=== PATIENT | female | born 1960 | race Caucasian/White ===

== ENCOUNTER 2017-07-28 10:09 | Emergency (ER) | payer MEDICARE ==
--- NOTE | 2017-07-28 10:38 | ER Document Report ---
ED Medical Screen (RME) - General Chief Complaint: Arm Pain Stated Complaint: BLOOD PRESSURE ISSUES Time Seen by Provider: 07/28/17 10:36 Notes: Patient states of severe right-sided neck pain that radiated down the right arm that caused some tingling in her right fingers. This started this morning. Patient states she now feels significantly better. TRAVEL OUTSIDE OF THE [place] IN LAST 30 DAYS: No - Related Data Allergies/Adverse Reactions: No Known Allergies Allergy (Verified 07/28/17 10:31) Home Medications: Current Home Medications Aspirin [Aspirin 81 mg Chewable Tablet] 2 tab PO DAILY 07/28/17 [History] Famotidine 1 tab PO QHS 07/28/17 [History] Past Medical History Renal/ Medical History: Denies: Hx Peritoneal Dialysis Physical Exam - Vital signs Vitals: Temp Pulse Resp BP Pulse Ox 98.2 F 97 16 152/92 H 98 07/28/17 10:15 07/28/17 10:15 07/28/17 10:15 07/28/17 10:15 07/28/17 10:15 Course - Vital Signs Vital signs: Temp Pulse Resp BP Pulse Ox 98.2 F 97 16 152/92 H 98 07/28/17 10:15 07/28/17 10:15 07/28/17 10:15 07/28/17 10:15 07/28/17 10:15
[2017-07-28 11:39] LABS: ABSOLUTE BASOPHILS # (AUTO) 0.1 10^3/uL (0.0-0.2); ABSOLUTE EOSINOPHILS # (AUTO) 0.1 10^3/uL (0.0-0.6); ABSOLUTE LYMPHOCYTES (AUTO) 3.7 10^3/uL (0.5-4.7); ABSOLUTE MONOCYTES (AUTO) 0.4 10^3/uL (0.1-1.4); ABSOLUTE NEUT (AUTO) 3.5 10^3/uL (1.7-8.2); BASOPHILS % (AUTO) 1.3 % (0-2); EOSINOPHILS % (AUTO) 1.1 % (0-6); HEMATOCRIT 44.6 % (36.0-47.0); HEMOGLOBIN 15.7 g/dL (12.0-15.5); HGB HCT DIFFERENCE 2.5; LYMPHOCYTES % (AUTO) 47.2 % (13-45); MEAN CORPUSCULAR HEMOGLOBIN 32.4 pg (27.0-33.4); MEAN CORPUSCULAR HGB CONC 35.2 g/dL (32.0-36.0); MEAN CORPUSCULAR VOLUME 92 fl (80-97); MONOCYTES % (AUTO) 5.1 % (3-13); RED BLOOD COUNT 4.83 10^6/uL (3.72-5.28); RED CELL DISTRIBUTION WIDTH 13.6 % (11.5-14.0); SEGMENTED NEUTROPHILS % (AUTO) 45.3 % (42-78); WHITE BLOOD COUNT 7.8 10^3/uL (4.0-10.5)
--- NOTE | 2017-07-28 12:00 | RADIOLOGY REPORT (SQ) ---
EXAM DESCRIPTION: CT HEAD WITHOUT COMPLETED DATE/TIME: 07/28/2017 11:51 am REASON FOR STUDY: arm paom and numbness COMPARISON: None. TECHNIQUE: Axial images acquired through the brain without intravenous contrast. Images reviewed wi th bone, brain and subdural windows. Images stored on PACS. All CT scanners at this facility use dose modulation, iterative reconstruction, and/or weight based d osing when appropriate to reduce radiation dose to as low as reasonably achievable (ALARA). [facility]: Dose Right [facility]: CareDose [facility]: Dose Right [facility]: Teradose 4D [facility]: Smart Enabled [employer] RADIATION DOSE: Up-to-date CT equipment and radiation dose reduction techniques were employed. CTDIv ol: 64.6 mGy. DLP: 1163 mGy-cm. mGy. LIMITATIONS: None. FINDINGS: VENTRICLES: Normal size and contour. CEREBRUM: No masses. No hemorrhage. No midline shift. No evidence for acute infarction. Normal gra y/white matter differentiation. No areas of low density in the white matter. CEREBELLUM: No masses. No hemorrhage. No alteration of density. No evidence for acute infarction. EXTRAAXIAL SPACES: No fluid collections. No masses. ORBITS AND GLOBE: No intra- or extraconal masses. Normal contour of globe without masses. CALVARIUM: No fracture. PARANASAL SINUSES: Mucosal thickening is seen of the left maxillary antrum. SOFT TISSUES: No mass or hematoma. OTHER: No other significant finding. IMPRESSION: No acute intracranial changes. No acute hemorrhage. EVIDENCE OF ACUTE STROKE: NO. COMMENT: Quality ID # [id number]: Final reports with documentation of one or more dose reduction techniques (e.g., Automated exposure control, adjustment of the mA and/or kV according to patient size, use of iterative reconstruction technique) TECHNICAL DOCUMENTATION: JOB ID: [id number]- All Rights Reserved
[2017-07-28 12:03] LABS: ALANINE AMINOTRANSFERASE 35 U/L (9-52); ALBUMIN 4.3 g/dL (3.5-5.0); ALKALINE PHOSPHATASE 81 U/L (38-126); ANION GAP 10 (5-19); ASPARTATE AMINO TRANSFERASE 22 U/L (14-36); BILIRUBIN,DIRECT 0.3 mg/dL (0.0-0.4); BILIRUBIN,TOTAL 0.4 mg/dL (0.2-1.3); BLOOD UREA NITROGEN 10 mg/dL (7-20); CALCIUM 9.7 mg/dL (8.4-10.2); CARBON DIOXIDE 30 mmol/L (22-30); CHLORIDE 103 mmol/L (98-107); CREATININE RESULT 0.64 mg/dL (0.52-1.25); GLUCOSE 91 mg/dL (75-110); POTASSIUM 4.7 mmol/L (3.6-5.0); SODIUM 142.8 mmol/L (137-145); TOTAL PROTEIN 6.9 g/dL (6.3-8.2)
[2017-07-28 12:31] VITALS: BP 135/94
[2017-07-28] MEDS ORDERED: DIAZEPAM INJ 10 MG/2 ML DISP.SYRIN IM ONE (12:49)
--- NOTE | 2017-07-28 12:51 | ER Document Report ---
ED General <BERNARDO JARRETT - Last Filed: 07/28/17 12:58> - General Mode of Arrival: Ambulatory Information source: Patient TRAVEL OUTSIDE OF THE [place] IN LAST 30 DAYS: No - HPI Onset: This morning Onset/Duration: Sudden Quality of pain: Sharp Severity: Mild Pain Level: 1 Associated symptoms: Body/muscle aches Exacerbated by: Movement Relieved by: Denies Similar symptoms previously: No Recently seen / treated by doctor: No <VAMSI JOHNSON - Last Filed: 07/28/17 15:56> - General Chief Complaint: Arm Pain Stated Complaint: BLOOD PRESSURE ISSUES Time Seen by Provider: 07/28/17 10:36 Notes: 56-year-old female history of hypertension presents with complaints of neck pain radiating from the posterior neck down the arm. Patient notes it is positional worsened with movement of the neck and lifting her arm up. Patient denies any actual chest pain denies any fevers or chills. Patient did have a heart catheterization 2 years ago and notes she was told that she has completely clean arteries and that her chest pain from the past was related to stress Patient notes she slept on the couch last night and thinks she slept wrong ( VAMSI JOHNSON) - Related Data Allergies/Adverse Reactions: No Known Allergies Allergy (Verified 07/28/17 10:31) Home Medications: Current Home Medications Albuterol Sulfate [Proair HFA Inhalation Aerosol 8.5 gm MDI] 2 puff IH BID 07/28 [History] Aspirin [Aspirin 81 mg Chewable Tablet] 2 tab PO DAILY 07/28/17 [History] Celecoxib 1 cap PO BID 07/28/17 [History] Esomeprazole Magnesium 1 cap PO DAILY 07/28/17 [History] Famotidine 1 tab PO QHS 07/28/17 [History] Fluticasone/Salmeterol [Advair 250-50 Diskus 28 dose] 1 inh IH Q12H 07/28/17 [ History] Lisinopril/Hydrochlorothiazide [Lisinopril-Hctz 10-12.5 mg Tab] 1 tab PO DAILY 07/28/17 [History] Metformin HCl 1 tab PO ACBRKFST 07/28/17 [History] Milnacipran HCl [Savella] 2 tab PO BID 07/28/17 [History] Past Medical History - Social History Smoking Status: Current Every Day Smoker Cigarette use (# per day): Yes Chew tobacco use (# tins/day): No Smoking Education Provided: No Frequency of alcohol use: None Drug Abuse: None Family History: Reviewed & Not Pertinent Patient has suicidal ideation: No Patient has homicidal ideation: No - Past Medical History Cardiac Medical History: Reports: Hx Hypertension Pulmonary Medical History: Reports: Hx COPD Renal/ Medical History: Denies: Hx Peritoneal Dialysis GI Medical History: Reports: Hx Gastroesophageal Reflux Disease Past Surgical History: Reports: Hx Appendectomy, Hx Cholecystectomy, Hx Hysterectomy, Hx Nose Surgery - 2 sinus, Hx Tonsillectomy - and adnoids, Hx Tubal Ligation <VAMSI JOHNSON - Last Filed: 07/28/17 15:56> Review of Systems <BERNARDO JARRETT - Last Filed: 07/28/17 12:58> <VAMSI JOHNSON - Last Filed: 07/28/17 15:56> - Review of Systems Notes: REVIEW OF SYSTEMS: CONSTITUTIONAL : Denies fever, chills, or sweats. Denies recent illness. EENT: Denies eye, ear, throat, or mouth pain or symptoms. Denies nasal or sinus congestion or discharge. Denies throat, tongue, or mouth swelling or difficulty swallowing. CARDIOVASCULAR: Denies chest pain. Denies palpitations or racing or irregular heart beat. Denies ankle edema. RESPIRATORY: Denies cough, cold, or chest congestion. Denies shortness of breath, difficulty breathing, or wheezing. GASTROINTESTINAL: Denies abdominal pain or distention. Denies nausea, vomiting , or diarrhea. Denies blood in vomitus, stools, or per rectum. Denies black, tarry stools. Denies constipation. GENITOURINARY: Denies difficulty urinating, painful urination, burning, frequency, blood in urine, or discharge. FEMALE GENITOURINARY: Denies vaginal bleeding, heavy or abnormal periods, irregular periods. Denies vaginal discharge or odor. MUSCULOSKELETAL: Denies back or neck pain or stiffness. Denies joint pain or swelling. SKIN: Denies rash, lesions or sores. HEMATOLOGIC : Denies easy bruising or bleeding. LYMPHATIC: Denies swollen, enlarged glands. NEUROLOGICAL: Admits throbbing pain from the neck down to the hand on the right PSYCHIATRIC: Denies anxiety or stress. Denies depression, suicidal ideation, or homicidal ideation. ALL OTHER SYSTEMS REVIEWED AND NEGATIVE. PHYSICAL EXAMINATION: GENERAL: Well-appearing, well-nourished and in no acute distress. HEAD: Atraumatic, normocephalic. EYES: Pupils equal round and reactive to light, extraocular movements intact, conjunctiva are normal. ENT: Nares patent, oropharynx clear without exudates. Moist mucous membranes. NECK: Normal range of motion, supple without lymphadenopathy LUNGS: Breath sounds clear to auscultation bilaterally and equal. No wheezes rales or rhonchi. HEART: Regular rate and rhythm without murmurs ABDOMEN: Soft, nontender, nondistended abdomen. No guarding, no rebound. No masses appreciated. Female : deferred Musculoskeletal: Normal range of motion, no pitting or edema. No cyanosis. Easily reproducible pain with movement of the arm and palpation of the neck NEUROLOGICAL: Cranial nerves grossly intact. Normal speech, normal gait. Normal sensory, motor exams PSYCH: Normal mood, normal affect. SKIN: Warm, Dry, normal turgor, no rashes or lesions noted. Dictation was performed using [employer] voice recognition software (VAMSI JOHNSON) - Vital signs Vitals: Temp Pulse Resp BP Pulse Ox 98.2 F 97 16 152/92 H 98 07/28/17 10:15 07/28/17 10:15 07/28/17 10:15 07/28/17 10:15 07/28/17 10:15 Course - Laboratory Result Diagrams: 07/28/17 11:10 07/28/17 11:10 <BERNARDO JARRETT - Last Filed: 07/28/17 12:58> - Laboratory Result Diagrams: 07/28/17 11:10 07/28/17 11:10 - Diagnostic Test Radiology reviewed: Image reviewed, Reports reviewed <VAMSI JOHNSON - Last Filed: 07/28/17 15:56> - Re-evaluation Re-evalutation: 07/28/17 15:48 Lab work noted no significant abnormality, given the patient's presentation is reproducible with movement of the arm I do believe this is more of a cervical impingement issue. She had a negative heart cath 2 years ago and therefore has very low risk for any cardiac event. Patient return precautions have been provided to the family and patient she will be treated with Valium for her pain pt has no cauda equina concerns After performing a Medical Screening Examination, I estimate there is LOW risk for RUPTURED ESOPHAGUS, PNEUMOTHORAX, PULMONARY EMBOLISM, ACUTE CORONARY SYNDROME, OR THORACIC AORTIC DISSECTION, thus I consider the discharge disposition reasonable. I have reevaluated this patient multiple times and no significant life threatening changes are noted. The patient and I have discussed the diagnosis and risks, and we agree with discharging home with close follow-up. We also discussed returning to the Emergency Department immediately if new or worsening symptoms occur. We have discussed the symptoms which are most concerning (e.g., bloody sputum, worsening pain or shortness of breath) that necessitate immediate return. (VAMSI JOHNSON) - Vital Signs Vital signs: Temp Pulse Resp BP Pulse Ox 97.8 F 85 18 135/94 H 98 07/28/17 12:29 07/28/17 12:29 07/28/17 12:29 07/28/17 12:29 07/28/17 12:29 - Laboratory Laboratory results interpreted by me: 07/28/17 11:10 Hgb 15.7 H Lymphocytes % 47.2 H Discharge <BERNARDO JARRETT - Last Filed: 07/28/17 12:58> <VAMSI JOHNSON - Last Filed: 07/28/17 15:56> - Discharge Clinical Impression: Cervical nerve root impingement Condition: Stable Disposition: HOME, SELF-CARE Instructions: Family Physicians / Practices, Neck Injury (Cervical Strain) ([facility] ) Additional Instructions: Follow up with your physician tomorrow for further care or return to the ED IMMEDIATELY if symptoms worsen or new concerns occur. If you cannot afford to follow up with your primary care physician a list of low cost clinics have been provided at the end of your discharge papers as well. Prescriptions: Diazepam [Valium 5 mg Tablet] 5 mg PO QIDP PRN #15 tablet PRN Reason:
--- NOTE | 2017-07-28 14:15 | EKG REPORT ---
SEVERITY:- OTHERWISE NORMAL ECG - SINUS RHYTHM LEFT AXIS DEVIATION : Confirmed by: Star Combs 28-Jul-2017 14:14:30
== END 2017-07-28 13:01 | disposition home or self-care (01) ==
LOC: ER 10:09
DX: S14.2XXA Injury of nerve root of cervical spine, initial encounter (principal); M79.603 Pain in arm, unspecified; M79.1 Myalgia; X58.XXXA Exposure to other specified factors, initial encounter; F17.210 Nicotine dependence, cigarettes, uncomplicated; I10 Essential (primary) hypertension; J44.9 Chronic obstructive pulmonary disease, unspecified; Z90.49 Acquired absence of other specified parts of digestive tract; Z90.710 Acquired absence of both cervix and uterus; Z79.82 Long term (current) use of aspirin; Z79.84 Long term (current) use of oral hypoglycemic drugs
CPT/HCPCS: 93005; 99284; 96372; 36415; 85025; 80053; 84484; 70450; 93010; J3360